=== PATIENT | male | born 1970 | race Caucasian/White ===

== ENCOUNTER 2020-12-30 11:21 | Emergency (ER) | payer BC, SELFPAY ==
--- NOTE | 2020-12-30 | ECG_ITS ---
Test Reason : CHEST PAIN Blood Pressure : / mmHG Vent. Rate : 068 BPM Atrial Rate : 068 BPM P-R Int : 164 ms QRS Dur : 090 ms QT Int : 376 ms P-R-T Axes : 002 -09 009 degrees QTc Int : 399 ms Normal sinus rhythm Normal ECG When compared with ECG of 19-JUN-2014 11:10, No significant change was found Referred By: Generic ED Physician Electronically Signed By:Linden Tinoco
--- NOTE | ~2020-12-30 | XR_ITS ---
EXAMINATION: Normal chest x-ray. CLINICAL INFORMATION: Chest pain COMPARISON: None TECHNIQUE: XR chest 1V Tubes and lines: None Lungs and Bernadette: Both lungs are clear. Pleura: Normal. Costophrenic angles are sharp. No pneumothorax. Heart and mediastinum: The mediastinum is within normal limits.. Bones: Skeletal structures included are normal for patient's age. XR/XR chest 1V IMPRESSION: Reason for Exam cp
[2020-12-30 11:24] VITALS: BP 138/62; PULSE 70; RESP 16; TEMP 36.6; O2SAT 96; BMI 41.9
[2020-12-30 12:14] LABS: MANUAL DIFF FLAG NO
[2020-12-30 12:16] LABS: Basophils Percent Auto 0.4 % (0-2); Eosinophils Absolute Auto 0.2 X10*3/uL (0.0-0.4); Eosinophils Percent Auto 2.4 % (0-4); Hematocrit 42.5 % (42-52); Imm Gran Abs Auto 0.05 X10*3/uL (0.00-0.03); Imm Gran Pct Auto 0.5 % (0.0-0.4); Lymphocytes Percent Auto 20.6 % (20-40); Mean Corpuscular HGB Conc 35.3 g/dl (31.0-36.0); Mean Corpuscular Hemoglobin 31.9 pg (27.0-33.0); Mean Corpuscular Volume 90.4 fL (80-98); Mean Platelet Volume 9.9 fL (9.4-12.4); Monocytes Absolute Auto 0.9 X10*3/uL (0.1-1.2); Monocytes Percent Auto 9.3 % (2-11); Neutrophils Absolute Auto 6.3 X10*3/uL (2.0-8.3); Neutrophils Percent Auto 66.8 % (45-73); Platelet Count 191 X10*3/uL (160-400); Red Cell Distribution Width 11.7 % (11.0-16.0); White Blood Count 9.5 X10*3/uL (4.8-10.8)
[2020-12-30 12:39] LABS: Alanine Aminotransferase 52 U/L (0-40); Albumin Level 4.1 g/dL (3.5-5.0); Alkaline Phosphatase 54 U/L (39-117); Anion Gap 12 (12-20); Aspartate Amino Transferase 26 U/L (5-37); Bilirubin Total 0.9 mg/dL (0.0-1.0); Blood Urea Nitrogen 18 mg/dL (9-16); Carbon Dioxide 25 mmol/L (22-29); Chloride 104 mmol/L (96-108); Creatinine Clr Calc Pharmacy 111.3; Estimated Glomerular Filt Rate > 60; Glucose Random 102 mg/dL (60-115); Potassium 3.9 mmol/L (3.3-5.1); Sodium 137 mmol/L (135-145); Total Protein 6.8 g/dL (6.5-8.0)
[2020-12-30 12:46] LABS: B Type Natriuretic Peptide < 10 pg/mL (<100); Troponin-I High Sensitivity 4.7 ng/L (<3.5-35.0)
[2020-12-30 14:18] VITALS: BP 151/75; PULSE 82; RESP 16; O2SAT 98
[2020-12-30 15:23] LABS: Troponin-I High Sensitivity 5.5 ng/L (<3.5-35.0)
[2020-12-30 15:50] VITALS: BP 131/72; PULSE 58; RESP 16; TEMP 36.6; O2SAT 97
[2020-12-30 16:08] LABS: Prothrombin Time 11.7 SEC (10.8-13.0)
[2020-12-30 16:10] LABS: Partial Thromboplastin Time 37.7 SEC (24.1-38.0)
[2020-12-30 16:11] LABS: D Dimer < 200 NG/ML
--- NOTE | 2020-12-30 16:20 | ED_ITS ---
HPI - Chest Pain General Chief Complaint: Chest Pain Stated Complaint: CHEST PAIN Time Seen by Provider: 12/30/20 15:49 Source: patient Mode of arrival: ambulatory Limitations: no limitations History of Present Illness HPI narrative: pleasant 50-year-old male with history of obesity and hypertension presents ambulatory via triage with complaint of sharp substernal pain episode last night after eating large amount of pizza and it went away after couple hours this morning he was dusting a rug pick that up and he was shaking it and felt a substernal chest pain which made him concerned similar to previous episodes. He denies any shortness of breath, recent illness. Pain does exacerbate with certain movement and deep inspiration. No lower extremity pain or swelling. No pain at this time resting. MD complaint: chest pain Onset (ago): day(s) (1) Timing of current episode: episodic Prior episodes: Yes Onset: during exertion and after eating Pain location: substernal Severity: mild Quality: tightness and aching Relieving factors: nothing Exacerbating factors: inspiration, eating and movement Treatment prior to arrival: none Risk Factors Coronary artery disease risk factors: hypertension Thoracic aortic dissection risk factors: none Pulmonary embolism risk factors: morbid obesity Related Data Previous Rx's Medication Instructions Recorded omeprazole magnesium [Prilosec OTC] 20 mg PO DAILY #14 tab 12/30/20 Allergies Allergy/AdvReac Type Severity Reaction Status Date / Time No Known Allergies Allergy Verified 12/30/20 11:30 [No Known Allergies*] Review of Systems Review of Systems: Constitutional: No Weight loss, No Fever, No Chills, No Ni ght Sweats, No Fatigue, No Malaise ENT/Mouth: No Hearing loss, No Ear Pain, No Nasal Congestion, No Sinus Pain, No Hoarseness, No sore throat, No Rhinorrhea, No Swallowing Difficulty Eyes: No Eye Pain, No Swelling, No Redness, No Foreign Body, No Discharge, No Vision Changes Cardiovascular: + Chest Pain, No SOB, No Dyspnea on Exertion, No Orthopnea, No Edema, No Palpitations Respiratory: No Cough, No Sputum, No Wheezing, No Dyspnea Gastrointestinal: No Nausea, No Vomiting, No Diarrhea, No Constipation, No abdominal Pain, No Hematochezia, No Melena Genitourinary: no irregular bleeding, No Dysuria, No Urinary Frequency, No Hematuria, No Urinary Incontinence, No Urgency, No Flank Pain, No Urinary Flow Changes, No Hesitancy Musculoskeletal: No joint pain, No Myalgias, No Joint Swelling Skin: No Skin Lesions, No rash Neuro: No Weakness, No Numbness, No Paresthesias, No Loss of Consciousness, No Dizziness, No Headache Psych: No Social Issues Heme/Lymph: No Bruising, No Bleeding,No Lymphadenopathy Endocrine: No Polyuria, No Polydipsia, No Temperature Intolerance Yes all other systems are reviewed and are negative [facility] Past Medical History Medical History HTN (hypertension) Obese Surgical History History of knee surgery Social History Social History Alcohol intake: never Smoking Status: Never smoker Use of substances other than those prescribed or required for medical reasons: Yes Substance Use Type: Marijuana Substance Use Type Other:: medical marijuana Advance Directives: No Advance Directives Information Provided: Yes Physical Exam Vital Signs: Vital Signs: Last Vital Signs Temp 97.9 F 12/30/20 15:50 Pulse 59 12/30/20 16:59 Resp 14 12/30/20 16:59 BP 126/68 12/30/20 16:59 Pulse Ox 97 12/30/20 16:59 Body Mass Index 41.9 Reviewed Const: General: cooperative and healthy appearing; No acute distress or intoxicated appearing Nutritional Appearance: average body habitus Orientation/consciousness: patient oriented x3 HENMT: Head: Yes normal to inspection Ears: hearing grossly normal bilaterally Eyes: General: appearance normal, both eyes and all related structures Visual Wood: normal visual wood by confrontation Neck: Neck: Yes normal visual inspection, No positive Brudzinski's sign, No positive Kernig's sign and No tender Thyroid: Thyroid normal Chest: Chest palpation & inspection: normal inspection of the chest Resp: Effort & Inspection: normal respiratory effort Auscultation: clear to auscultation bilaterally Cardio: Jugular venous distension: no JVD Rhythm: regular rhythm Heart sounds: S1 normal heart sound present and S2 normal heart sound present GI: Inspection: Yes normal to inspection Palpation (GI): Soft to palpation Percussion: Yes normal to percussion Auscultation: normal bowel sounds : General: Yes no CVA tenderness Back/Spine/Pelvis: Back: no CVA tenderness Skin: General skin exam: no rashes or lesions noted Neuro: General: patient oriented x3 Extrem: General: Yes normal to inspection Course Reevaluation(s) Reevaluation #1: For EKG nondiagnostic, serum troponin without delta. D-dimer negative. Pain more consistent with reflux with superimposed musculoskeletal an d less likely ACS/dissection/PE/infectious pathology. He has been stable without pain here well nontoxic appearing. Patient counseled on maintaining healthy weight, balanced diet, reflux diet, proper PPI use, and the need for follow-up with his primary care doctor. Verbalized understanding. Stable for discharge. MDM - Chest Pain Differential Diagnosis Differential diagnosis: Likely atypical chest pain and costochondritis; Unlikely fracture of rib, pneumothorax, stable angina, unstable angina pectoris, st elevation myocardial infarction, chest pain and biliary colic Medical Records Data Attestation: I reviewed the patient's medical records. Lab Data Attestation: I reviewed the patient's lab results. Result diagrams: 12/30/20 12:08 12/30/20 12:08 Labs: Lab Results 12/30/20 12/30/20 12/30/20 Range/Units 12:08 12:08 12:08 WBC 9.5 (4.8-10.8) X10*3/uL RBC 4.70 (4.60-5.80) X10*6/uL Hgb 15.0 (14.0-18.0) g/dl Hct 42.5 (42-52) % MCV 90.4 (80-98) fL MCH 31.9 (27.0-33.0) pg MCHC 35.3 (31.0-36.0) g/dl RDW 11.7 (11.0-16.0) % Plt Count 191 (160-400) X10*3/uL MPV 9.9 (9.4-12.4) fL Immature Gran % (Auto) 0.5 H (0.0-0.4) % Neut % (Auto) 66.8 (45-73) % Lymph % (Auto) 20.6 (20-40) % [place] % (Auto) 9.3 (2-11) % Eos % (Auto) 2.4 (0-4) % Baso % (Auto) 0.4 (0-2) % Lymph # (Auto) 2.0 (1.2-4.9) X10*3/uL [place] # (Auto) 0.9 (0.1-1.2) X10*3/uL Eos # (Auto) 0.2 (0.0-0.4) X10*3/uL Baso # (Auto) 0.0 (0.0-0.2) X10*3/uL Abs Immat Gran (auto) 0.05 H (0.00-0.03) X10*3/uL Absolute Neuts (auto) 6.3 (2.0-8.3) X10*3/uL Absolute Nucleated RBC 0.000 (0.0-0.012) X10*3/uL Nucleated RBC % (auto) 0.0 (0.0-0.2) /100WBC PT 11.7 (10.8-13.0) SEC INR 1.0 (0.9-1.1) APTT 37.7 (24.1-38.0) SEC D-Dimer < 200 NG/ML Hold Blue Top SEE NOTE Sodium 137 (135-145) mmol/L Potassium 3.9 (3.3-5.1) mmol/L Chloride 104 (96-108) mmol/L Carbon Dioxide 25 (22-29) mmol/L Anion Gap 12 (12-20) BUN 18 H (9-16) mg/dL Creatinine 0.97 (0.5-1.4) mg/dL Estim Creat Clear Calc 111.3 Estimated GFR > 60 Random Glucose 102 (60-115) mg/dL Calcium 9.0 (8.4-10.2) mg/dL Total Bilirubin 0.9 (0.0-1.0) mg/dL AST 26 (5-37) U/L ALT 52 H (0-40) U/L Alkaline Phosphatase 54 (39-117) U/L Troponin I High Sens (<3.5-35.0) ng/L B-Natriuretic Peptide (<100) pg/mL Total Protein 6.8 (6.5-8.0) g/dL Albumin 4.1 (3.5-5.0) g/dL COVID-19 (GLENDA) (Negative) COVID-19 Clin Com 12/30/20 12/30/20 12/30/20 Range/Units 12:08 14:23 16:30 WBC (4.8-10.8) X10*3/uL RBC (4.60-5.80) X10*6/uL Hgb (14.0-18.0) g/dl Hct (42-52) % MCV (80-98) fL MCH (27.0-33.0) pg MCHC (31.0-36.0) g/dl RDW (11.0-16.0) % Plt Count (160-400) X10*3/uL MPV (9.4-12.4) fL Immature Gran % (Auto) (0.0-0.4) % Neut % (Auto) (45-73) % Lymph % (Auto) (20-40) % [place] % (Auto) (2-11) % Eos % (Auto) (0-4) % Baso % (Auto) (0-2) % Lymph # (Auto) (1.2-4.9) X10*3/uL [place] # (Auto) (0.1-1.2) X10*3/uL Eos # (Auto) (0.0-0.4) X10*3/uL Baso # (Auto) (0.0-0.2) X10*3/uL Abs Immat Gran (auto) (0.00-0.03) X10*3/uL Absolute Neuts (auto) (2.0-8.3) X10*3/uL Absolute Nucleated RBC (0.0-0.012) X10*3/uL Nucleated RBC % (auto) (0.0-0.2) /100WBC PT (10.8-13.0) SEC INR (0.9-1.1) APTT (24.1-38.0) SEC D-Dimer NG/ML Hold Blue Top Sodium (135-145) mmol/L Potassium (3.3-5.1) mmol/L Chloride (96-108) mmol/L Carbon Dioxide (22-29) mmol/L Anion Gap (12-20) BUN (9-16) mg/dL Creatinine (0.5-1.4) mg/dL Estim Creat Clear Calc Estimated GFR Random Glucose (60-115) mg/dL Calcium (8.4-10.2) mg/dL Total Bilirubin (0.0-1.0) mg/dL AST (5-37) U/L ALT (0-40) U/L Alkaline Phosphatase (39-117) U/L Troponin I High Sens 4.7 5.5 (<3.5-35.0) ng/L B-Natriuretic Peptide < 10 (<100) pg/mL Total Protein (6.5-8.0) g/dL Albumin (3.5-5.0) g/dL COVID-19 (GLENDA) Negative (Negative) COVID-19 Clin Com See Note Imaging Data Chest x-ray: Radiologist's impression: [id number] [place], [place] [id number] ReportSigned Patient: Dave Cancino [facility]#: [id number]: 1970Acct:[id number]/Sex: 50 / MADM Date: 12/30/20Loc: HORickeyEDAttending Dr: Ordering Physician: Generic ED Physician Date of Service: 12/30/20 Procedure(s): XR chest 1V Accession Number(s): [id number] cc: Generic ED Physician~ EXAMINATION: Normal chest x-ray. CLINICAL INFORMATION: Chest pain COMPARISON: None TECHNIQUE: XR chest 1V Tubes and lines: None Lungs and Bernadette: Both lungs are clear. Pleura: Normal. Costophrenic angles are sharp. No pneumothorax. Heart and mediastinum: The mediastinum is within normal limits.. Bones: Skeletal structures included are normal for patient's age. XR/XR chest 1V IMPRESSION: No acute disease. Dictated By:LUCINA MONTGOMERY MDSigned By:<Electronically signed by LUCINA MONTGOMERY MD in OV>12/30/20 1211 DD/ 1130TD/TT: Drawer In St[employer]ing Machine: ECG Data ECG #1: Interpretation: Normal sinus rhythm Rate 68 Normal ECG When compared with ECG of 19-JUN-2014 11:10, No significant change was found Discharge Plan Discharge Clinical Impression: Atypical chest pain Patient Disposition: Home, Self-Care Instructions: Chest Pain (ED) Additional Instructions: Your blood work was overall stable Your chest x-ray was negative Her EKG did not show any signs of heart attack Your blood work for heart was within normal limits The pain that you are having is either muscle or reflux related Your COVID test was negative Balanced diet Trial short course of antacid medication Gentle stretching Low-sodium diet next Follow-up her primary doctor discussed Return if any concerns worsening symptoms Thank you Prescriptions: New omeprazole magnesium [Prilosec OTC] 20 mg tablet,delayed release (DR/EC) 20 mg PO DAILY Qty: 14 RF: 0 Referrals: Dudley Graves MD [Primary Care Provider] - 3 days Discharge Date/Time: 12/30/20 18:12
[2020-12-30 16:53] LABS: COVID-19 Test Negative (Negative); IDNOW Serial# 9DD0AD1C
[2020-12-30 16:59] VITALS: BP 126/68; PULSE 59; RESP 14; O2SAT 97
[2020-12-30 18:03] VITALS: BP 159/91; PULSE 61; RESP 18
== END 2020-12-30 18:12 | disposition home or self-care (01) ==
PROVIDERS: Nurse Practitioner Primary Care; Emergency Provider Internal Medicine; PCP Internal Medicine
DX: R07.89 Other chest pain (principal); Z20.822 Contact with and (suspected) exposure to COVID-19; I10 Essential (primary) hypertension; F12.90 Cannabis use, unspecified, uncomplicated
CPT/HCPCS: 36415; 71045; 80053; 83880; 84484; 85025; 85379; 85610; 85730; 87635; 93005; 99284; 99285

== ENCOUNTER 2023-11-24 13:03 | Emergency (ER) | payer BC, SELFPAY ==
--- NOTE | ~2023-11-24 | CT_ITS ---
EXAMINATION: CT CHEST, ABDOMEN AND PELVIS WITH CONTRAST CLINICAL INFORMATION: Left-sided abdominal pain with question of pneumonia COMPARISON: Chest radiograph 12/30/2020 and 06/19/2014 TECHNIQUE: Multidetector volumetric imaging was performed from the thoracic inlet through the pubic symphysis following administration of 85 mL of Omnipaque 350. Sagittal and coronal reformatted images were obtained on the technologist's workstation. This CT examination was performed using dose optimization techniques as appropriate, variously including the following: *Automated exposure control *Adjustment of mA and/or kV according to patient size (this includes techniques or standardized protocols for targeted exams where dose is matched to indication/reason for exam; i.e. extremities or head) *Use of iterative reconstruction technique DLP: 562 mGy-cm FINDINGS: CHEST: Lung: The lungs are clear without focal opacity or nodule. Motion artifact interferes with detail. Some minimal peribronchial thickening may be present. Mediastinum: The mediastinum is normal. The central vascular structures are unremarkable. No hilar or mediastinal lymphadenopathy. Coronary Artery Calcium: None seen Pericardium/Pleura: No significant effusion. No pleural mass or thickening. Chest Wall/Axilla: Unremarkable ABDOMEN/PELVIS: Peritoneal Space: No significant free air or free fluid identified. Liver, Gallbladder, Biliary Tree: The liver is enlarged at 18.3 cm and demonstrates decreased attenuation consistent with hepatic steatosis. No focal hepatic lesion or biliary ductal dilatation is present. The gallbladder is unremarkable with no evidence of radiopaque gallstones, gallbladder wall thickening, or obvious pericholecystic inflammatory changes. Pancreas: Unremarkable Spleen: Spleen is enlarged at 15.6 cm in cephalocaudad dimension. Adrenal Glands: Unremarkable Kidneys and Ureters: The kidneys are normal in size, shape, and attenuation. No hydronephrosis, hydroureter, or calculi seen. No perinephric stranding. Bladder: Unremarkable Gastrointestinal Tract: Colonic diverticula are present. There is one area in the very proximal sigmoid where there is some pericolonic inflammatory change in the sigmoid mesentery (6:73-77 and 16:37). The small and large bowel are otherwise unremarkable. The appendix is unremarkable. Abdominal Wall: Bilateral fat-containing inguinal hernias are seen, right greater than left. Lymph Nodes: No lymphadenopathy. Vascular: The aorta appears normal.. The IVC appears unremarkable. PELVIC VISCERA: The prostate and seminal vesicles are unremarkable. OSSEUS STRUCTURES: Mild degenerative changes are noted in the spine. No bony destructive lesions are seen. CT/CT abdomen pelvis w IV con IMPRESSION: 1. No evidence of pneumonia. 2. Enlarged fatty liver with associated splenomegaly. 3. Colonic diverticulosis with one area of pericolonic inflammatory change in the proximal sigmoid colon. Please correlate with any symptoms of diverticulitis as this could represent subtle early diverticulitis. 4. Other incidental findings as described above. Fleischner guidelines were followed.
--- NOTE | 2023-11-24 13:07 | ED.GENADULT ---
HPI - General Adult General Chief complaint: Abdominal Pain Stated complaint: abd pain Time Seen by Provider: 11/24/23 16:24 Source: patient Mode of arrival: ambulatory History of Present Illness HPI narrative: 52-year-old male history of high blood pressure presents to ED for left-sided abdominal and flank pain with nausea and vomiting since yesterday. Patient describes left-sided flank pain as sharp coming and going. She denies any testicular pain, dysuria, hematuria chills, chest pain, or shortness of breath. Related Data Previous Rx's Medication Instructions Recorded omeprazole magnesium 20 mg 20 mg PO DAILY #14 tabs 12/30/20 tablet,delayed release (Prilosec OTC) ciprofloxacin HCl 500 mg tablet 500 mg PO Q12H 7 days #14 tabs 11/24/23 metronidazole 500 mg tablet 500 mg PO Q12H 7 days #14 tabs 11/24/23 naproxen 500 mg tablet 500 mg PO BID PRN pain 7 days #14 11/24/23 tabs Allergies Allergy/AdvReac Type Severity Reaction Status Date / Time No Known Allergies Allergy Verified 12/30/20 11:30 [No Known Allergies*] Review of Systems Review of Systems: Left-sided abdominal pain and flank pain. Yes all other systems are reviewed and are negative PMFSH Past Medical History Medical History HTN (hypertension) Obese Surgical History History of knee surgery Social History Social History Alcohol intake: never Smoked in Last 30 Days: No Use of substances other than those prescribed or required for medical reasons: Yes Substance Use Type: Marijuana Substance Use Frequency: Chronic Longstanding Advance Directives: No Advance Directives Information Provided: No Physical Exam ED Vital Signs: Vital Signs - 24 hr 11/24/23 13:08 11/24/23 16:37 11/24/23 17:28 Temperature 98.2 F 97.3 F 98.5 F Pulse Rate 101 H 82 82 Respiratory Rate 18 16 16 Blood Pressure 152/107 H 171/104 H 150/103 H Pulse Oximetry 97 95 97 Oxygen Delivery Method Room Air Room Air Room Air 11/24/23 19:38 11/24/23 19:46 11/24/23 21:50 Temperature 98.1 F 98.1 F Pulse Rate 89 72 62 Respiratory Rate 18 16 16 Blood Pressure 167/101 H 171/97 H 155/77 H Pulse Oximetry 97 97 95 Oxygen Delivery Method Room Air Room Air BMI result Body Mass Index 41.6 Const General: cooperative, healthy appearing, comfortable, no acute distress, well developed, alert, awake and Physically active Orientation/consciousness: oriented to person, oriented to place, oriented to time and patient oriented x3 HENMT Head: Yes normal to inspection, Yes No palpable skull fracture present, Yes normocephalic and Yes atraumatic Eyes General: appearance normal, both eyes and all related structures Neck Neck: Yes normal visual inspection, Yes full ROM, Yes no lymphadenopathy, Yes no meningeal signs, Yes trachea midline, Yes supple, No anterior neck swelling and No tender Chest Chest palpation & inspection: normal inspection of the chest and normal palpation of entire chest wall Resp Effort & Inspection: normal respiratory effort and able to speak in complete sentences Auscultation: clear to auscultation bilaterally Cardio Jugular venous distension: no JVD Heart sounds: S1 normal heart sound present and S2 normal heart sound present GI Inspection: Yes normal to inspection Palpation (GI): Soft to palpation, not firm, Tenderness to palpation present (GI) (left mid abdominal pain) in the LLQ, no guarding and not rigid General: Yes no CVA tenderness Back/Spine/Pelvis Back: no CVA tenderness and No back tenderness Skin General skin exam: no rashes or lesions noted, elasticity normal and turgor normal Neuro General: oriented to person, oriented to place, oriented to time, patient oriented x3, gait normal, tone normal, moves all extremities, Normal light touch and pain sensation, no meningeal signs, no focal motor deficits, CN's II-XI intact bilaterally and normal sensation to monofilament Extrem Other: Bilateral lower extremiteis negative for swelling, pitting edema, or calf tenderness. General: Yes normal to inspection, Yes full ROM and Yes capillary refill normal Psych Appearance: grossly normal, well kempt and not disheveled Course Course Course Narrative: This is a rapid medical exam: Additional HPI, ROS, PE not included below will be deferred to primary provider. Patient is a 52-year-old male presenting to the ED with complaint of left sided abdominal pain radiating to back since yesterday afternoon as well as nausea and vomiting. Denies diarrhea. Rates pain at 6 or 7/10. Denies prior abdominal surgeries, denies urinary symptoms. BP 175/130 in triage, states he has been taking his BP meds as prescribed. Plan: EKG, labs, UA Medications Administered Discontinued Medications Generic Name Dose Route Start Last Admin Trade Name Bowen PRN Reason Stop Dose Admin Sodium Chloride 1,000 mls @ 999 mls/hr 11/24/23 16:43 11/24/23 19:38 Ns IV 11/24/23 17:43 Infused .Q1H1M STA Infusion Iohexol 100 ml 11/24/23 19:34 11/24/23 19:35 Iohexol 350 Mg/Ml 100 Ml Infus..Btl IV 11/24/23 19:35 85 ml ONCE ONE Administration Ketorolac Tromethamine 30 mg 11/24/23 16:43 11/24/23 17:43 Ketorolac Tromethamine 30 Mg/Ml Vial IVPUSH 11/24/23 16:44 30 mg ONCE ONE Administration Medical Decision Making Medical Decision Making [facility] Narrative: 52-year-old male with pmh of HTN presenting to left-sided abdominal pain/left flank pain since yesterday with nausea and vomiting. Patient denies any trauma or genitourinary symptoms. Initial [employer] done with normal labs EKG 1st troponin negative. Blood pressure elevated will order fluids and pain medication was sent for CT scan. Pending UA 9:48pm: Patient passed p.o. challenge. Abdominal CT scan shows early diverticulitis. Patient will be discharged on antibiotics and discharged with pain medication. Patient informed to follow-up with primary care provider. Having symptoms since yesterday. One troponin suffice. EKG negative Differential Diagnosis Differential Diagnoses: The differential diagnosis associated with the presentation includes (Diverticulitis, kidney stones, UTI, pneumonia) Admission/Observation Consideration of admission/observation: Escalation of care including admission/observation considered Lab Data [facility] Lab Attestation statement: I reviewed the patient's lab results. 11/24/23 14:16 11/24/23 14:16 Labs: Lab Results 11/24/23 11/24/23 Range/Units 14:16 18:16 WBC 15.1 H (4.8-10.8) X10*3/uL RBC 5.60 (4.60-5.80) X10*6/uL Hgb 17.3 (14.0-18.0) g/dl Hct 48.5 (42.0-52.0) % MCV 86.6 (80.0-98.0) fL MCH 30.9 (27.0-33.0) pg MCHC 35.7 (31.0-36.0) g/dl RDW 11.7 (11.0-16.0) % Plt Count 262 (160-400) X10*3/uL MPV 9.7 (9.4-12.4) fL Immature Gran % (Auto) 0.5 H (0.0-0.4) % Neut % (Auto) 77.5 H (45-73) % Lymph % (Auto) 14.7 L (20-40) % [place] % (Auto) 6.5 (2-11) % Eos % (Auto) 0.5 (0-4) % Baso % (Auto) 0.3 (0-2) % Lymph # (Auto) 2.2 (1.2-4.9) X10*3/uL [place] # (Auto) 1.0 (0.1-1.2) X10*3/uL Eos # (Auto) 0.1 (0.0-0.4) X10*3/uL Baso # (Auto) 0.1 (0.0-0.2) X10*3/uL Abs Immat Gran (auto) 0.07 H (0.00-0.03) X10*3/uL Absolute Neuts (auto) 11.7 H (2.0-8.3) x10*3/uL Absolute Nucleated RBC 0.000 (0.0-0.012) X10*3/uL Nucleated RBC % (auto) 0.0 (0.0-0.2) /100WBC PT 12.1 (11.1-13.3) SEC INR 1.0 (0.9-1.1) Sodium 137 (135-145) mmol/L Potassium 4.0 (3.3-5.1) mmol/L Chloride 104 (96-108) mmol/L Carbon Dioxide 25 (22-29) mmol/L Anion Gap 12 (12-20) BUN 13 (9-16) mg/dL Creatinine 0.82 (0.5-1.4) mg/dL Estim Creat Clear Calc 136.6 Estimated GFR > 60 Random Glucose 128 H (60-115) mg/dL Calcium 10.1 D (8.4-10.2) mg/dL Total Bilirubin 1.0 (0.0-1.0) mg/dL AST 26 (5-37) U/L ALT 49 H (0-40) U/L Alkaline Phosphatase 65 (39-117) U/L Troponin I High Sens < 2.7 (<3.5-35.0) ng/L Total Protein 8.2 H (6.5-8.0) g/dL Albumin 4.4 (3.5-5.0) g/dL Lipase 32 (8-78) U/L Urine Color Yellow Urine Appearance Clear Urine pH 6.5 (5.0-9.0) Ur Specific [place] 1.025 (1.005-1.025) Urine Protein Negative (Neg-Trace) mg/dL Urine Glucose (UA) Negative (Negative) mg/dL Urine Ketones Negative (Negative) mg/dL Urine Blood Negative (Negative) Urine Nitrite Negative (Negative) Ur Leukocyte Esterase Negative (Negative) Independent Interpretation I performed an independent interpretation of an: EKG (Normal sinus negative. Negative STEMI) and CT Scan Radiology Impression Discussion of test interpretation with radiology: I have reviewed the radiologist's reading. External Record Review External record reviewed: Other (Prior visits) Prescription Management I considered prescription management with: Pain Medication and Antibiotic Chronic Conditions Patient?s care impacted by: Hypertension Discharge Plan Discharge Clinical Impression: Diverticulitis, Fatty liver Patient Disposition: Home, Self-Care Instructions: Diverticulitis (ED), Non-Alcoholic Fatty Liver Disease (ED) Additional Instructions: CT scan is showing early diverticulitis. CT scan also shows fatty liver with splenomegaly. You will be discharged with antibiotics recommend follow-up with primary care provider. Return to the ED immediately for worsening abdominal pain, nausea, vomiting, diarrhea, fever, chills, or any other concerning symptoms. Prescriptions: New ciprofloxacin HCl 500 mg tablet 500 mg PO Q12H 7 Days Qty: 14 0RF metronidazole 500 mg tablet 500 mg PO Q12H 7 Days Qty: 14 0RF naproxen 500 mg tablet 500 mg PO BID PRN (Reason: pain) 7 Days Qty: 14 0RF No Action omeprazole magnesium [Prilosec OTC] 20 mg tablet,delayed release (DR/EC) 20 mg PO DAILY Qty: 14 0RF Stand Alone Forms: Work/School Release Interventions: ED Discharge Assessment Last Done: 11/24/23 22:07 Discharge Date/Time: 11/24/23 22:07 Print Language: [place]
[2023-11-24 13:08] VITALS: BP 152/107; PULSE 101; RESP 18; TEMP 36.8; O2SAT 97; BMI 41.6
--- NOTE | 2023-11-24 13:10 | ECG_ITS ---
Test Reason : abd pain Blood Pressure : / mmHG Vent. Rate : 097 BPM Atrial Rate : 097 BPM P-R Int : 152 ms QRS Dur : 078 ms QT Int : 348 ms P-R-T Axes : 018 -17 006 degrees QTc Int : 441 ms Normal sinus rhythm Cannot rule out Anterior infarct , age undetermined Abnormal ECG When compared with ECG of 30-DEC-2020 11:26, No significant change was found Referred By: Kalee Schultz Electronically Signed By:MIMA MCCORMICK
[2023-11-24 14:22] LABS: MANUAL DIFF FLAG NO
[2023-11-24 14:24] LABS: Basophils Absolute Auto 0.1 X10*3/uL (0.0-0.2); Basophils Percent Auto 0.3 % (0-2); Eosinophils Absolute Auto 0.1 X10*3/uL (0.0-0.4); Eosinophils Percent Auto 0.5 % (0-4); Hematocrit 48.5 % (42.0-52.0); Hemoglobin 17.3 g/dl (14.0-18.0); Imm Gran Abs Auto 0.07 X10*3/uL (0.00-0.03); Imm Gran Pct Auto 0.5 % (0.0-0.4); Lymphocytes Absolute Auto 2.2 X10*3/uL (1.2-4.9); Lymphocytes Percent Auto 14.7 % (20-40); Mean Corpuscular HGB Conc 35.7 g/dl (31.0-36.0); Mean Corpuscular Hemoglobin 30.9 pg (27.0-33.0); Mean Corpuscular Volume 86.6 fL (80.0-98.0); Mean Platelet Volume 9.7 fL (9.4-12.4); Monocytes Percent Auto 6.5 % (2-11); Neutrophils Absolute Auto 11.7 x10*3/uL (2.0-8.3); Neutrophils Percent Auto 77.5 % (45-73); Platelet Count 262 X10*3/uL (160-400); Red Cell Distribution Width 11.7 % (11.0-16.0); White Blood Count 15.1 X10*3/uL (4.8-10.8)
[2023-11-24 14:28] LABS: Prothrombin Time 12.1 SEC (11.1-13.3)
[2023-11-24 14:40] LABS: Alanine Aminotransferase 49 U/L (0-40); Albumin Level 4.4 g/dL (3.5-5.0); Alkaline Phosphatase 65 U/L (39-117); Anion Gap 12 (12-20); Aspartate Amino Transferase 26 U/L (5-37); Blood Urea Nitrogen 13 mg/dL (9-16); Calcium 10.1 mg/dL (8.4-10.2); Carbon Dioxide 25 mmol/L (22-29); Chloride 104 mmol/L (96-108); Creatinine Clr Calc Pharmacy 136.6; Estimated Glomerular Filt Rate > 60; Glucose Random 128 mg/dL (60-115); Lipase 32 U/L (8-78); Sodium 137 mmol/L (135-145); Total Protein 8.2 g/dL (6.5-8.0)
[2023-11-24 14:59] LABS: Troponin-I High Sensitivity < 2.7 ng/L (<3.5-35.0)
[2023-11-24 16:37] VITALS: BP 171/104; PULSE 82; RESP 16; TEMP 36.3; O2SAT 95
--- NOTE | 2023-11-24 16:42 | MHC.EDTECH ---
THIS PCT JUST ASSUMED CARE OF PATIENT ,VITALS TAKEN ,PROVIDER AWARE OF PATIENT HIGH BLOOD PRESSURE .
[2023-11-24 17:28] VITALS: BP 150/103; PULSE 82; RESP 16; TEMP 36.9; O2SAT 97
--- NOTE | 2023-11-24 17:35 | MHC.EDTECH ---
PATIENT NOT ABLE TO GIVE URINAL SAMPLE AT THIS TIME ,RN AWARE .
[2023-11-24] MEDS: 0.9 % Sodium Chloride 1,000 ML 999 ML IV (17:41)
[2023-11-24] MEDS: Ketorolac Tromethamine 30 MG/ML VIAL IVPUSH (17:43)
[2023-11-24 18:28] LABS: Appearance Urine Clear; Color Urine Yellow; Glucose Urine UA Negative (Negative); Leukocyte Esterase Urine Negative (Negative); Nitrite Urine Negative (Negative); PH 6.5 (5.0-9.0); Specific Gravity - Urine 1.025 (1.005-1.025); Urine Blood Negative (Negative); Urine Ketones Negative (Negative); Urine Protein Negative (Neg-Trace)
[2023-11-24] MEDS: iohexoL 350 MG/ML 100 ML INFUS..BTL IV (19:35)
[2023-11-24 19:38] VITALS: BP 167/101; PULSE 89; RESP 18; O2SAT 97
[2023-11-24 19:46] VITALS: BP 171/97; PULSE 72; RESP 16; TEMP 36.7; O2SAT 97
[2023-11-24 21:50] VITALS: BP 155/77; PULSE 62; RESP 16; TEMP 36.7; O2SAT 95
== END 2023-11-24 22:07 | disposition home or self-care (01) ==
PROVIDERS: Registered Nurse Emergency; Emergency Provider Emergency Medicine Emergency Medical Services; PCP Family Medicine
DX: K57.32 Diverticulitis of large intestine without perforation or abscess without bleeding (principal); K76.0 Fatty (change of) liver, not elsewhere classified; R10.32 Left lower quadrant pain; R94.31 Abnormal electrocardiogram [ECG] [EKG]; R11.2 Nausea with vomiting, unspecified; Z79.899 Other long term (current) drug therapy
CPT/HCPCS: 36415; 71260; 74177; 80053; 81003; 83690; 84484; 85025; 85610; 93005; 96361; 96374; 99284; 99285; J1885; Q9967

== ENCOUNTER → 2023-11-24 13:10 | Outpatient (BNV) | payer BC, SELFPAY | PROVIDERS: Emergency Provider Emergency Medicine Emergency Medical Services; PCP Family Medicine; Visit Provider Internal Medicine | DX: R94.31 Abnormal electrocardiogram [ECG] [EKG] (principal) | CPT/HCPCS: 93010 ==